=== PATIENT | female | born 1985 | race Asian ===

== ENCOUNTER 2018-03-21 15:29 | Emergency (ER) | payer OTHER ==
[~2018-03-21] VITALS: Ht 165.1 cm; Wt 86.4 kg
[~2018-03-21 15:29] MED LIST: HYDR50CA10 PO; OLAN10TA3 PO; QUET300T2 PO
[2018-03-21] MEDS ORDERED: CEPHALEXIN MONOHYDRATE 500 MG CAPSULE PO ONE (18:15)
[2018-03-21] MEDS ORDERED: SULFAMETHOX/TRIMETH DS 800-160 MG/TABLET PO ONE (18:15)
[2018-03-21] MEDS ORDERED: IBUPROFEN 800 MG TABLET PO ONE (18:15)
[2018-03-21 18:25] VITALS: BP 108/67
== END 2018-03-21 19:01 | disposition home or self-care (01) ==
LOC: EMS 15:31
DX: L02.416 Cutaneous abscess of left lower limb (principal); F17.210 Nicotine dependence, cigarettes, uncomplicated; F31.9 Bipolar disorder, unspecified; F20.9 Schizophrenia, unspecified; Z79.899 Other long term (current) drug therapy
CPT/HCPCS: 99284; 99406

== ENCOUNTER 2020-02-18 01:19 | Emergency (ER) | payer OTHER ==
[~2020-02-18] VITALS: Ht 162.6 cm; Wt 90.9 kg
[~2020-02-18 01:19] MED LIST changes: -HYDR50CA10 PO; +HYDR50CA9 PO
[2020-02-18] MEDS ORDERED: LIDOCAINE 2% 5 ML JELLY TP ONE (02:00)
[2020-02-18 03:23] VITALS: BP 123/82
== END 2020-02-18 03:57 | disposition home or self-care (01) ==
LOC: EMS 01:19
DX: L02.413 Cutaneous abscess of right upper limb (principal); F31.9 Bipolar disorder, unspecified; F20.9 Schizophrenia, unspecified; F17.210 Nicotine dependence, cigarettes, uncomplicated
CPT/HCPCS: 10060; Z7502; Z7610